=== PATIENT | female | born 1945 ===

== ENCOUNTER 2021-11-24 17:38 | Inpatient (IN) ==
[2021-11-24] MEDS ORDERED: oxyCODONE/Acetamin 5/325 mg TAB PO ONE (18:08)
[2021-11-24 19:57] LABS: ABS Basophils 0.1 10^3/ul (0-0.2); ABS Lymphocytes 1.4 10^3/ul (1.0-4.8); ABS Monocytes 0.9 10^3/ul (0-0.8); ABS Neutrophils 9.2 10^3/ul (1.5-7.7); Eosinophil % 0.2 %; Hematocrit 46 % (35-47); Hemoglobin 15.4 g/dL (12.0-16.0); Lymphocyte % 12.1 %; Mean Corpuscular HGB Conc 33 g/dL (31-36); Mean Corpuscular Hemoglobin 30 pg (27-31); Mean Corpuscular Volume 90 fL (80-97); Mean Platelet Volume 8.5 fL (7.4-10.4); Platelet Count 195 10^3/uL (150-450); Red Blood Count 5.14 10^6 /uL (3.70-4.87); Red Cell Distribution Width 15 % (10-15); White Blood Count 11.6 10^3/uL (3.5-10.8)
[2021-11-24 20:07] LABS: INR 2.76 (0.86-1.15)
[2021-11-24 20:17] LABS: Albumin 4.2 g/dL (3.2-5.2); Calcium 10.4 mg/dL (8.6-10.3); Potassium 4.4 mmol/L (3.5-5.0); Total Bilirubin 0.7 mg/dL (0.2-1.0)
[2021-11-24 20:23] LABS: eGFR CKD-EPI 75.7 (>60)
[2021-11-24 20:34] LABS: Albumin/Globulin Ratio 1.7 (1-3); Globulin 2.5 g/dL (2-4); Total Protein 6.7 g/dL (6.4-8.9)
[2021-11-24] MEDS ORDERED: Phytonadione IV (Adult) 10 MG in NS 0.9% 50 ML 50 ML IV ONE (20:40)
[2021-11-25] MEDS: oxyCODONE/Acetamin 5/325 mg TAB PO PRN ×4 (00:23→21:42)
[2021-11-25 05:36] LABS: ABS Basophils 0.1 10^3/ul (0-0.2); ABS Eosinophils 0.1 10^3/ul (0-0.6); ABS Lymphocytes 2.3 10^3/ul (1.0-4.8); ABS Monocytes 0.7 10^3/ul (0-0.8); ABS Neutrophils 6.2 10^3/ul (1.5-7.7); Eosinophil % 0.6 %; Hematocrit 44 % (35-47); Hemoglobin 14.9 g/dL (12.0-16.0); Lymphocyte % 24.6 %; Mean Corpuscular HGB Conc 34 g/dL (31-36); Mean Corpuscular Hemoglobin 30 pg (27-31); Mean Corpuscular Volume 89 fL (80-97); Mean Platelet Volume 8.2 fL (7.4-10.4); Nucleated Red Blood Cells % 0.1; Platelet Count 184 10^3/uL (150-450); Red Blood Count 4.96 10^6 /uL (3.70-4.87); Red Cell Distribution Width 14 % (10-15); White Blood Count 9.4 10^3/uL (3.5-10.8)
[2021-11-25 05:43] LABS: INR 1.76 (0.86-1.15)
[2021-11-25 06:28] LABS: Calcium 9.8 mg/dL (8.6-10.3); eGFR CKD-EPI 91.4 (>60)
[2021-11-25] MEDS: Cholecalciferol (VIT D3) 1,000 unit TAB PO SCH (08:49)
[2021-11-26] MEDS: oxyCODONE/Acetamin 5/325 mg TAB PO PRN ×2 (05:50→11:15)
[2021-11-26] MEDS: Cholecalciferol (VIT D3) 1,000 unit TAB PO SCH (08:53)
[2021-11-26 12:04] VITALS: BP 132/75
== END 2021-11-26 15:38 | disposition home or self-care (01) | DRG 86 ==
LOC: ED 17:38 → EDHOLD 22:08 → ICU 23:52 → SSU 11-25 14:45
PROVIDERS: ADMIT Internal Medicine; ATTEND Hospitalist